=== PATIENT | female | born 1955 | race Caucasian/White ===

== ENCOUNTER 2017-01-20 08:13 | Outpatient (CLI) | payer BC, OTHER | END 2017-01-20 08:14 | DX: E03.9 Hypothyroidism, unspecified (principal); Z13.220 Encounter for screening for lipoid disorders; Z79.899 Other long term (current) drug therapy ==

== ENCOUNTER 2017-03-21 10:47 | Outpatient (CLI) | payer BC, OTHER ==
--- NOTE | 2017-03-22 11:00 | Mammography Report ---
DIGITAL BILATERAL SCREENING MAMMOGRAM: 03/21/2017 CLINICAL HISTORY: This is a 62-year-old female in for routine screening mammogram. Patient has no f amily history of breast cancer. The patient had a benign left breast biopsy in 1996. COMPARISON: 04/04/2007, 04/11/2008, 03/11/2009, 03/15/2010, 03/17/2011, 03/21/2012, 03/06/2013, 03/2014, 03/12/2015, 05/09/2016 TECHNIQUE: Craniocaudad and oblique lateral views of each breast were obtained with [facility] digital mammography. Axillary exaggerated craniocaudad views were obtained to compliment the pres ent exam. FINDINGS: Extremely dense breasts are noted bilaterally. There is a small asymmetrical density pankaj uring 0.7 cm in diameter in the medial aspect of the breast 2.2 cm medial and posterior to the left s ubareolar region. This finding appears slightly increased in size as compared to preceding exam on 0 05/09/2016 when it measured 0.4 cm. This finding may be located at the 8-9 o'clock position. Recomme nd patient return for additional views of the breast including coned-down compression, craniocaudad, and oblique lateral views as well as a lateral medial view for further evaluation. If indicated, an ultrasound should also be obtained of this area. No significant clusters of calcification are detected in the breasts. IMPRESSION: A 0.7 CM ASYMMETRICAL DENSITY IS NOTED IN THE 8-9 O'CLOCK POSITION OF THE ANTERIOR ASPEC T OF THE LEFT BREAST. THIS FINDING APPEARS PROGRESSIVE COMPARED TO EXAM DATED 05/09/2016. RECOMM END PATIENT RETURN FOR ADDITIONAL VIEWS AND POSSIBLY LEFT BREAST ULTRASOUND FOR FURTHER EVALUATION. BIRADS CATEGORY 0 - INCOMPLETE. NEEDS ADDITIONAL IMAGING EVALUATION. STANDARD QUALIFYING STATEMENTS 1. This examination was reviewed with the aid of Computer-Aided Detection (CAD). 2. A negative or benign imaging report should not delay biopsy if clinically suspicious findings are present. Consider surgical consultation if warranted. More than 5% of cancers are not identified by i maging. 3. Dense breasts may obscure an underlying neoplasm. JOB #: [id number] EXT JOB #:[id number]
== END 2017-03-21 10:48 | disposition home or self-care (01) ==
LOC: DI.N 10:47
DX: Z12.31 Encounter for screening mammogram for malignant neoplasm of breast (principal); N63 Unspecified lump in breast
CPT/HCPCS: 77067

== ENCOUNTER 2017-03-23 15:08 | Outpatient (CLI) | payer BC, OTHER ==
--- NOTE | 2017-03-24 11:11 | DEXA Report ---
DEXA SCAN: 03/23/2017 CLINICAL HISTORY: Postmenopausal. TECHNIQUE: Dual energy x-ray absorptiometry (DXA) was performed on a [employer] system. Regions measured are the AP spine, femoral neck, and, if needed, forearm. COMPARISON: None. In accordance with the International Society for Clinical Densitometry (ISCD) guidelines, data from previous exams may be reanalyzed using current recommendations and techniques. This is done to allow a more accurate basis for comparison with the current study. FINDINGS: Bone mineral density demonstrates osteoporosis according to World Health Organization guidelines. The data for the lumbar spine is as follows: REGION BMD (g/cm/cm) T-SCORE Z-SCORE L1 0.953 -1.5 0.5 L2 1.116 -0.7 1.2 L3 1.210 0.1 2.0 L4 1.061 -1.2 0.8 TOTAL 1.088 -0.8 1.2 NOTE: All evaluable vertebrae are used for classification. The data for the hip is as follows: REGION BMD (g/cm/cm) T-SCORE Z-SCORE Neck 0.643 -2.8 -1.1 TOTAL 0.734 -2.2 -0.7 NOTE: The femoral neck or total proximal femur, whichever is lowest, is used for classification. IMPRESSION: THE WHO CLASSIFICATION BASED ON THE INTERNATIONAL REFERENCE STANDARD IS OSTEOPOROSIS. THE FRACTURE RISK IS SIGNIFICANTLY INCREASED. RECOMMENDATION: Patients with diagnosis of osteoporosis or osteopenia should have regular bone mineral density assessment. For those eligible for Medicare, routine testing is allowed once every 2 years. Testing frequency can be increased for patients who have rapidly progressing disease or for those who are receiving medical therapy to restore bone mass. COMMENT: World Health Organization (WHO) definitions for osteoporosis and osteopenia: NORMAL BMD: T-score at -1.0 or higher, fracture risk is low. OSTEOPENIA BMD: T-score between -1.0 and -2.5, fracture risk is increased. OSTEOPOROSIS BMD: T-score at -2.5 or lower, fracture risk high. 1. Obtain adequate dietary calcium (at least 1200 mg per day) and vitamin D (400 -800 international units per day). 2. Participate, as appropriate, in regular weightbearing and muscle- strengthening exercise. 3. Avoid tobacco use and reduce alcohol and caffeine intake. 4. For more detailed information see the website at www.NOF.org. MTDD
== END 2017-03-23 15:09 | disposition home or self-care (01) ==
LOC: DI 15:08
DX: Z13.820 Encounter for screening for osteoporosis (principal); M81.0 Age-related osteoporosis without current pathological fracture
CPT/HCPCS: 77080

== ENCOUNTER 2017-03-29 13:42 | Outpatient (CLI) | payer BC, OTHER ==
--- NOTE | 2017-03-29 15:48 | Mammography Report ---
DIGITAL DIAGNOSTIC LEFT MAMMOGRAM: 03/29/2017 CLINICAL INDICATION: Possible nodule on screening exam. TECHNIQUE: Left true lateral and spot compression views. COMPARISON: 03/21/2017, 05/09/2016, 03/12/2015, 03/04/2014, 03/06/2013, 03/21/2012, 03/17/2011, 03/15. FINDINGS: The left breast again demonstrates heterogeneously dense fibroglandular parenchyma. The de nsity in question in the left lower inner anterior breast does not persist on additional compression. No underlying mass lesion is seen. IMPRESSION: NEGATIVE EXAMINATION. RECOMMENDATION: ROUTINE ANNUAL SCREENING UNLESS OTHERWISE CLINICALLY INDICATED. BIRADS CATEGORY 1-NEGATIVE. STANDARD QUALIFYING STATEMENTS 1. This examination was reviewed with the aid of Computer-Aided Detection (CAD). 2. A negative or benign imaging report should not delay biopsy if clinically suspicious findings are present. Consider surgical consultation if warranted. More than 5% of cancers are not identified by i maging. 3. Dense breasts may obscure an underlying neoplasm. JOB #: [id number] EXT JOB #:[id number]
== END 2017-03-29 13:43 | disposition home or self-care (01) ==
LOC: DI 13:42
DX: R92.8 Other abnormal and inconclusive findings on diagnostic imaging of breast (principal)

== ENCOUNTER 2017-05-24 11:20 | Outpatient (CLI) | payer BC, OTHER ==
--- NOTE | 2017-05-24 14:27 | CT Report ---
CT OF THE BRAIN WITHOUT CONTRAST: 05/24/2017 CLINICAL INDICATION: Right eyelid wound, dizziness. TECHNIQUE: Axial CT images of the brain were obtained without intravenous contrast. No previous CT is available for comparison. FINDINGS: The ventricles and sulci are normal in size, shape and configuration. The basilar cisterns are patent. At the left vertex, there is a hyperdense meningeal-based nodule, measuring 6 x 10 mm. T his likely represents a small meningioma. Consider MRI for confirmation. The visualized orbital rupesh nts and paranasal sinuses are unremarkable. Soft tissue laceration is seen above the right orbit. IMPRESSION: LIKELY SMALL LEFT-SIDED MENINGIOMA NEAR THE VERTEX. CONSIDER MRI FOR CONFIRMATION. SOFT TISSUE LACERATION ABOVE THE RIGHT ORBIT. In accordance with CT protocol optimization, one or more of the following dose reduction techniques w ere utilized for this exam: automated exposure control, adjustment of mA and/or KV based on patient size, or use of iterative reconstructive technique. JOB #: [id number] EXT JOB #:[id number]
== END 2017-05-24 11:21 | disposition home or self-care (01) ==
LOC: DI 11:20
PROVIDERS: ATTEND Otolaryngology Facial Plastic Surgery
DX: G93.9 Disorder of brain, unspecified (principal); S01.81XD Laceration without foreign body of other part of head, subsequent encounter
CPT/HCPCS: 70450

== ENCOUNTER 2018-04-05 14:29 | Outpatient (CLI) | payer BC, OTHER ==
--- NOTE | 2018-04-06 11:52 | Mammography Report ---
SCREENING MAMMOGRAM: 04/05/2018 HISTORY: Prior benign left breast biopsy. COMPARISON: 03/29/2017, 03/21/2017, 05/09/2016, 03/12/2015, 03/04/2014, 03/06/2013, 03/21/2012, 03/17/2011 and 03/15/2010. TECHNIQUE: Bilateral digital CC, exaggerated CC, and MLO projections. FINDINGS: The breast tissue is extremely dense. There is no dominant mass, architectural distortion, skin thickening, suspicious microcalcifications or interval change. IMPRESSION: NEGATIVE - BIRADS CATEGORY 1 RECOMMENDATION: Suggest return to routine followup in 12 months. STANDARD QUALIFYING STATEMENTS: 1. This examination was reviewed with the aid of Computer-Aided Detection (CAD). 2. A negative or benign imaging report should not delay biopsy if clinically suspicious findings are present. Consider surgical consultation if warranted. More than 5% of cancers are not identified by imaging. 3. Dense breasts may obscure an underlying neoplasm. TD: 04/06/2018 10:25
== END 2018-04-05 14:30 | disposition home or self-care (01) ==
LOC: DI 14:29
DX: Z12.31 Encounter for screening mammogram for malignant neoplasm of breast (principal)
CPT/HCPCS: 77067